=== PATIENT | male | born 1960 | race Caucasian/White ===

== ENCOUNTER 2017-04-07 20:21 | Emergency (ER) | payer OTHER ==
[~2017-04-07] VITALS: Ht 167.6 cm; Wt 74.0 kg
[~2017-04-07 20:21] MED LIST: ASPI81 PO; ATOR40TA28 PO; CLOP75 PO; DIPH25CA85 PO; GLIP5TAB11 PO; IBUP-1547 PO; ISOS30TA6 PO; LISI-661 PO; METF500T4 PO; METO25 PO; MONT10TA21 PO; NITR.4 SL; PRED20TA3 PO; SIMV-261 PO
[2017-04-07] MEDS ORDERED: KETOROLAC TROMETHAMINE 60 MG/2 ML VIAL IM ONE (23:15)
[2017-04-07 23:28] VITALS: BP 137/89
== END 2017-04-07 23:30 | disposition home or self-care (01) ==
LOC: EMS 20:23
DX: S60.212A Contusion of left wrist, initial encounter (principal); S50.02XA Contusion of left elbow, initial encounter; I11.9 Hypertensive heart disease without heart failure; E11.9 Type 2 diabetes mellitus without complications; F17.210 Nicotine dependence, cigarettes, uncomplicated; Z79.82 Long term (current) use of aspirin; W10.8XXA Fall (on) (from) other stairs and steps, initial encounter; Y93.89 Activity, other specified; Y92.89 Other specified places as the place of occurrence of the external cause; Y99.8 Other external cause status
CPT/HCPCS: 73080; 73110; 96372; 99284; J1885

== ENCOUNTER 2017-07-23 15:50 | Emergency (ER) | payer OTHER ==
[~2017-07-23] VITALS: Ht 165.1 cm; Wt 63.6 kg
[~2017-07-23 15:50] MED LIST changes: -IBUP-1547 PO; +IBUP-2071 PO
[2017-07-23 16:07] LABS: GLUCOSE,POINT OF CARE 111 MG/DL (70-110)
[2017-07-23] MEDS ORDERED: FLUT44HFA IH (16:07)
[2017-07-23] MEDS ORDERED: CLIN150C9 PO (16:07)
[2017-07-23] MEDS ORDERED: CETI-290 PO (16:07)
[2017-07-23 17:02] VITALS: BP 134/81
[2017-07-23] MEDS ORDERED: LIDOCAINE HCL 1% 10 ML VIAL INJ ONE (17:45)
[2017-07-23] MEDS ORDERED: POVIDONE-IODINE 10% 15 ML SOLUTION UD TP ONE (18:00)
== END 2017-07-23 18:25 | disposition home or self-care (01) ==
LOC: EMS 15:53
DX: L02.01 Cutaneous abscess of face (principal); I11.9 Hypertensive heart disease without heart failure; E11.9 Type 2 diabetes mellitus without complications; E78.00 Pure hypercholesterolemia, unspecified; F17.210 Nicotine dependence, cigarettes, uncomplicated; Z79.82 Long term (current) use of aspirin
CPT/HCPCS: 10160; 82962; 99284; J3490

== ENCOUNTER 2018-07-01 19:20 | Emergency (ER) | payer OTHER ==
[~2018-07-01] VITALS: Ht 172.7 cm; Wt 65.9 kg
[~2018-07-01 19:20] MED LIST changes: +CETI-290 PO; +CLIN150C9 PO; -DIPH25CA85 PO; +FLUT44HFA IH; -IBUP-2071 PO; +METF-960 PO; -METF500T4 PO; -PRED20TA3 PO
[2018-07-01 22:15] VITALS: BP 146/73
== END 2018-07-01 22:22 | disposition home or self-care (01) ==
LOC: EMS 19:21
DX: H10.9 Unspecified conjunctivitis (principal); H00.023 Hordeolum internum right eye, unspecified eyelid; L70.0 Acne vulgaris; F17.210 Nicotine dependence, cigarettes, uncomplicated; E11.9 Type 2 diabetes mellitus without complications; E78.00 Pure hypercholesterolemia, unspecified; I10 Essential (primary) hypertension; Z79.82 Long term (current) use of aspirin; Z79.84 Long term (current) use of oral hypoglycemic drugs; Z79.899 Other long term (current) drug therapy
CPT/HCPCS: 99283

== ENCOUNTER 2025-02-16 16:11 | Emergency (ER) | payer OTHER ==
[~2025-02-16] VITALS: Ht 167.6 cm; Wt 58.0 kg
[~2025-02-16 16:11] MED LIST changes: +ASPI-1450 PO; -ASPI81 PO; -CETI-290 PO; +CETI-450 PO; +CLIN-26 PO; -CLIN150C9 PO; -CLOP75 PO; +CLOP75TA33 PO; +FLUT44H IH; -FLUT44HFA IH; -GLIP5TAB11 PO; +GLIP5TAB15 PO; -ISOS30TA6 PO; +ISOS30TA68 PO; -LISI-661 PO; +LISI-893 PO; +METF-1211 PO; -METF-960 PO; +MONT-35 PO; -MONT10TA21 PO; -NITR.4 SL; +NITR0.4T52 SL
[2025-02-16 16:21] VITALS: BP 167/79; PULSE 89; RESP 16; TEMP 98.2; O2SAT 98
[2025-02-16] MEDS: ACETAMINOPHEN 500 MG TABLET PO ONE (17:28)
[2025-02-16] MEDS: METHOCARBAMOL 500 MG TABLET PO ONE (17:28)
[2025-02-16] MEDS: LIDOCAINE 5% TRANSDERMAL PATCH TD ONE (17:29)
[2025-02-16] MEDS: KETOROLAC TROMETHAMINE 30 MG/ML VIAL IM ONE (17:29)
[2025-02-16] MEDS ORDERED: METH-812 PO (18:26)
== END 2025-02-16 18:39 | disposition home or self-care (01) ==
LOC: EMS 16:12
DX: S40.011A Contusion of right shoulder, initial encounter (principal); I10 Essential (primary) hypertension; E11.9 Type 2 diabetes mellitus without complications; E78.00 Pure hypercholesterolemia, unspecified; Z79.51 Long term (current) use of inhaled steroids; Z79.82 Long term (current) use of aspirin; Z79.84 Long term (current) use of oral hypoglycemic drugs; Z79.899 Other long term (current) drug therapy; V43.52XA Car driver injured in collision with other type car in traffic accident, initial encounter; Y93.89 Activity, other specified; Y92.410 Unspecified street and highway as the place of occurrence of the external cause; Y99.8 Other external cause status
CPT/HCPCS: 99284; 73030; 96372; J1885